=== PATIENT | female | born 1990 | race Caucasian/White ===

== ENCOUNTER → 2016-10-31 16:23 | Observation (INO) ==
[2016-10-31 13:35] LABS: Bilirubin,Urine Negative (Negative); Blood,Urine Trace (Negative); Clarity,Urine Cloudy (Clear); Color,Urine Yellow (Yellow); Glucose,Urine (UA) Normal (Normal); Ketones,Urine Trace mg/dL (Negative); Leukocyte Esterase,Urine Negative (Negative); Nitrite,Urine Negative (Negative); PH,Urine 5.5 pH Units (5.0-8.0); Protein,Urine Trace mg/dL (Neg-Trace); Specific Gravity,Urine 1.029 (1.010-1.025); Urobilinogen,Urine Normal (Normal)
[2016-10-31 13:37] LABS: Bacteria,Urine None Seen per hpf (None-Few); Squamous Epithelial Cell,Urine Many per lpf (None-Few); WBC,Urine 0-3 per hpf (0-3)
[2016-10-31 13:45] LABS: Calcium Oxalate Crystals,Urine Present
[2016-10-31 13:49] VITALS: BP 110/75
--- NOTE | 2016-10-31 16:15 | OB/GYN Progress Note ---
Date of Encounter: 10/31/16 Time of Encounter: 16:12 - Assessment and Plan (1) Pelvic pain affecting Current Visit: Yes Status: Acute Pt with occasional contractions but no cervical change of two exams by RN. UA negative, but with presenting symptoms will give rx for Keflex. Pt states is having a little more cramping since vaginal exams. Pt declines further vaginal exam. Discharged to home with labor and when to return precautions. (2) NST (non-stress test) reactive Current Visit: Yes Status: Acute Baseline 125 Subjective - Subjective Interval history: Pt complains of lower abdominal pain and pressure today. Pt states she has had increasing pain and pressure since yesterday and it comes and goes. Thinks they are contractions. Reports good movement, denies vaginal bleeding or leaking of fluid. Pt also complains of increased frequency and discomfort with urination, also feeling like she is not emptying her bladder completely over the last couple days. Antepartum ROS: new complaints, movement normal, contractions, no loss of fluid, no vaginal bleeding Objective - Vital Signs Vital Signs: Vital Signs Temp Resp BP 10/31/16 13:39 97.2 F L 14 110/75 Intake and Output 10/31/16 10/31/16 10/31/16 07:59 15:59 23:59 Other: Weight 96.5 kg Patient Weight 10/31/16 23:59 Weight 96.5 kg - Exam FHR: auscultation normal FHR comments: Reactive NST Auscultation: bilateral: normal Abdomen: Present: normal appearance, soft, gravid Uterus: Present: normal Cervical dilation: fingertip/long/high - Labs Labs: Abnormal lab results Urine Clarity Cloudy (Clear) A 10/31/16 13:24 Ur Specific [place] 1.029 (1.010-1.025) H 10/31/16 13:24 Urine Ketones Trace mg/dL (Negative) H 10/31/16 13:24 Urine Blood Trace (Negative) H 10/31/16 13:24 Ur Squamous Epith Cells Many per lpf (None-Few) H 10/31/16 13:24
== END | disposition home or self-care (01) ==
LOC: 1NENULAB
PROVIDERS: ADMIT Obstetrics & Gynecology; ATTEND Obstetrics & Gynecology

== ENCOUNTER 2016-12-05 05:30 | Inpatient (IN) ==
[2016-12-05] MEDS ORDERED: *HR* Nalbuphine 20 MG/ML AMPUL IVP PRN (06:13)
[2016-12-05] MEDS ORDERED: Ringers Solution, Lactated 1,000 ML IVC SCH (06:15)
--- NOTE | 2016-12-05 06:26 | OB/GYN History & Physical ---
Date of Encounter: 12/05/16 Time of Encounter: 06:16 Assessment and Plan (1) 39 weeks gestation of Current visit: Yes Status: Acute The patient has an appropriate care. The patient has had asthma in past, and requires albuterol 3-4/ week. (2) Elective induction of labor planned Current visit: Yes Status: Acute By mouth Cytotec, anticipate vaginal delivery (3) Hemorrhoids Current visit: Yes Status: Acute Pt states pain controlled with topical treatment Qualifiers: Hemorrhoid type: perianal venous thrombosis Qualified Code(s): K64.5 - Perianal venous thrombosis History of Present Illness HPI: Ms. Koehler is a 26 year old female at 39 weeks and 6 days with a PMHX of asthma and anxiety who presents for induction of labor. She had care at [facility] with Dr. Howard. Her has been complicated wit worsening of asthma with an increase of albuterol use from 1-2 times/week to 3-4 /week, but feels asthma is "controlled" and denies any nightime awakenings or antepartum exacerbations requiring hospitalization. Pt additionally endorsed a recent episode of hemorrhoids last week, which was treated with topical (Anusol ) treatment only. Pain has subsided since initial onset. She reports an active fetus. Denies vaginal bleeding, fluid loss, or shortness of breath. labs are the following: Blood type: O-/ Rubella Immune/ RPR NEG/ HebB NonReactive/HIV NonReactive/Varicella IgG +/ GBS NEG. Pt received [place] on as an outpatient. She has signed her informed consent for induction. Past Med Surg Social Fam HX - Past Medical History Source: patient Medical history: asthma, other Psychiatric history: anxiety, depression - Past Surgical History Surgical History: no surgical history - Social History Smoking Status: Current every day smoker Smokeless Tobacco Status: No Alcohol use: none Drug use: none - Family History Mother Living Status: Still Living Hx Family Respiratory Disorders: Yes (asthma) Obstetrical History - Pregnancies : 2 Para: 1 Term: 0 : 0 Ab's: 0 Livin - History/Complications History/Complications: 1st : 2008 Vaginal Delivery, full term Male, [id number] Medications and Allergies Vitamins 1 tab PO DAILY 10/31/16 [History] Albuterol Inhaler 1 puff AER PRN PRN 07/11/17 [History] Allergies No Known Allergies Allergy (Verified 12/05/16 06:29) Review of System OB - Constitutional Constitutional ROS IM: headache(s), lethargy, other (anxiety) - Respiratory Respiratory: as per HPI, no dyspnea, no wheezing, no pain on inspiration - Gastrointestinal Gastrointestinal: vomiting, no abdominal pain, no constipation, no diarrhea, no nausea - Genitourinary Genitourinary: urinary urgency, no abnormal vaginal bleeding, no dysuria, no pelvic pain, no vaginal discharge - Muscloskeletal Musculoskeletal: back pain Exam - Vital Signs Vital signs: T:98.4 BP: 114/78 HR: 81 - Constitutional Constitutional: well developed, well nourished, no acute distress - HEENT HEENT: EOMI, PERRL, Normocephaly - Neck Neck exam: supple - Lungs Respiratory exam: CTAB (No wheezing. No respiratory destress. No chest wall tendrness. ) - Cardiovascular Cardiovascular exam: RRR - Abdomen Abdomen: Present: bowel sounds normal, gravid - Comments Comments: FHT: Baseline: 135 Moderate Variability Contractions: Irregular Results Result Diagrams: 12/05/16 06:34 All other labs normal. - Attending Attestation I agree with H&P as written for elective induction of labor. Jerome Stephenson CNM
[2016-12-05] MEDS ORDERED: Ringers Solution, Lactated 1,000 ML ONE (06:40)
[2016-12-05 06:45] LABS: Basophils % 0.4 %; Eosinophils # 0.1 K/mcL (0.0-0.6); Eosinophils % 0.7 %; Hematocrit 33.6 % (35.3-44.9); Hemoglobin 11.1 g/dL (11.5-15.4); Immature Granulocytes % 1.1 % (0-4); Lymphocytes # 1.8 K/mcL (0.6-4.6); Lymphocytes % 19.7 %; Mean Corpuscular Hemoglobin 30.9 pg (28.0-33.3); Mean Corpuscular Volume 93.6 fL (83.0-100.0); Mean Platelet Volume 10.7 fL (9.4-12.4); Monocytes # 0.6 K/mcL (0.0-1.3); Monocytes % 6.4 %; Neutrophils # 6.5 K/mcL (1.6-8.9); Platelet Count 196 K/mcL (140-400); Red Blood Count 3.59 M/mcL (3.82-4.97); Red Cell Distribution Width 14.5 % (11.5-14.5); Segmented Neutrophils % 71.7 %
[2016-12-05] MEDS: miSOPROStol 100 MCG TABLET PO SCH ×2 (07:34→11:33)
--- NOTE | 2016-12-05 09:35 | Anesthesia Evaluation PreOp ---
Date of Encounter: 12/05/16 Time of Encounter: 09:33 - Past History Planned Operation: juan carlos Cardiac History: Arrhythmia (irregular hx, regular today) Pulmonary History: Smoker (1/2 ppd), Pack/yr (10), Asthma, Snore [employer] History: Denies Any Significant HX Other Medical History: GERD Anesthesia History: No Prior Anesthetic Complications, Past Anesthesia (juan carlos, no prob) : Yes Test: Positive Alcohol Use: none Drug use: none Medications and Allergies Vitamins 1 tab PO DAILY 10/31/16 [History] Albuterol Inhaler 1 puff AER PRN PRN 12/05/16 [History] Allergies No Known Allergies Allergy (Verified 12/05/16 06:29) - Meds/Allergy Pre-op Review Medications Reviewed: Yes Allergies Reviewed: Yes Beta Blockers on Current Med List: No Anesthesia Results - Labs 12/05/16 06:34 Anesthesia Exam 114/78 81 16 fht 131 Height: 5'3" Weight: 99 kg NPO (# of Hours): 5 Pain Scale: 2 Pain Scale Used: Numeric (1 - 10) - HEENT Pupil (Motor): Pupils equal Mallampati: II Teeth: Normal Oral Opening: Greater than 3 - GR[employer] LOC: Oriented [employer] Motor: Normal RUE, Normal LUE, Normal RLE, Normal LLE, Normal Face [employer] Sensory: Normal: RUE, LUE, RLE, LLE, Face - Cardiac Rhythm: Regular Murmur: None - Pulmonary Breath Sounds: bilateral Clear Respiratory Effort: Symmetrical Anesthesia Assess/Plan ASA Score: 2 Modified Ashwini Scale for Level of Consciousness: Cooperative, oriented, and tranquil Anesthetic Plan: MAC Autologous Blood: No Monitoring Plan: Standard Monitors Recovery Plan: Other (risks discussed, questions answered, consented)
--- NOTE | 2016-12-05 11:31 | OB Labor Progress Note ---
Date of Encounter: 12/05/16 Time of Encounter: 11:27 Labor Progress Note - Subjective Subjective: Patient resting comfortably in bed - Vital Signs Vital Signs: VSS - Cervix Cervix: 3/70/-2 posterior - Heart Tones Heart Tones: 140's with moderate variability and 15x15 accels - [place]: Contractions every 5-8 minutes; mild to palpation. Uterus palpates soft between contractions - Plan Plan: Continue routine labor management Give second dose of cytotec per protocol Patient may have epidural and/or iv pain medication upon request for pain GBS negative Anticipate vaginal delivery Consider AROM and/or pitocin for augmentation after next exam POC per consult with Dr Howard.
[2016-12-05] MEDS ORDERED: *HR* FentaNYL (PF) 100 MCG/2 ML VIAL EP ONE (15:32)
[2016-12-05] MEDS ORDERED: *HR* Ropivacaine/PF 0.2% 10 ML AMPUL EP ONE (15:32)
[2016-12-05] MEDS ORDERED: *HR* FentaNYL (PF) 100 MCG/2 ML VIAL ONE (15:40)
[2016-12-05] MEDS ORDERED: *HR* Ropivacaine/PF 0.2% 10 ML AMPUL ONE (15:40)
[2016-12-05] MEDS ORDERED: Epidural Premix (fent/bupiv) 110 ML EP ONE (15:40)
[2016-12-05] MEDS ORDERED: Epidural Premix (fent/bupiv) 110 ML EP SCH (15:45)
--- NOTE | 2016-12-05 16:12 | Anesthesia Procedures ---
Date of Encounter: 12/05/16 Time of Encounter: 16:10 Procedures: Anesthesia - Epidural/Spinal Patient examined: Yes OB Eval: Gestational age: 39.6 OB Eval: : 2 OB Eval: Hx Para: 1 OB Eval: Dilated at (cm): 4 OB Eval: Contractions: Non-stressed pattern Consent Obtained: Yes Supplemental Oxygen: None/Room Air Site Prep: Aseptic Technique, Sterile prep and drape, 0.5% Chlorhexidine/Alcohol Patient position: upright Local Anesthetic: Lidocaine 1% Amount of Local Anesthetic used: 4 Touhy Needle Gauge: 18 Touhy Needle Depth (cm): 8 Catheter Depth at Skin (cm): 15 Test Dose (1.5% Lido + Epi): Volume given (mls): 3 Test Dose Result: Negative Loading Dose: Fentanyl (mcg): 100 Loading Dose: Other: ropivicaine 0.2% 10 cc Loading Dose Administered: Thru Touhy Needle Infusion Med: 0.125% Bupivacaine w/ 2 mcg/ml Fentanyl Infusion Rate (mls/hr): 15 (pcea 5 cc q 30") Catheter Secured in Place: Tegaderm Interspace Used: L2-L3 Loss of Resistance (JAYDEN): Yes Blood: No CSF: No Paresthesia: No Procedure: aseptic throughout VSS, tolerated well Vitals + FHT's: 130/80 98 fht 131
[2016-12-05] MEDS ORDERED: Acetaminophen 325 MG TABLET PO PRN ×2 (16:39→21:33)
[2016-12-05] MEDS ORDERED: Oxytocin 20 units/ LR 1000 mL 20 UNIT/1,000 ML BAG IVC SCH ×2 (16:45→21:33)
[2016-12-05] MEDS ORDERED: Lidocaine 1% 20 ML MDV ONE (20:31)
--- NOTE | 2016-12-05 21:17 | OB/GYN Procedure Note ---
Delivery - Delivery Date: 12/05/16 Provider: Slick Howard Intrapartum events: none Delivery induction: oxytocin, misoprostol Delivery monitor: external FHT, external uterine Anesthesia: local, epidural Estimated Blood Loss: 150 - Infant (s) A Infant Delivery Date: 12/05/16 Delivery Time: 20:22 Presentation: vertex Position: [place] Gender: Female Viability: Viable Weight Gram: 3.605 kg at 1 minute: 8 at 5 mins: 9 Shoulder Dystocia: not encountered - Repair Episiotomy: none Laceration Description: Periurethral, Labial - Complications Delivery complications: none - Disposition Mom disposition: stable in LDR [place] disposition: stable in LDR - Comments Comments: Pt s/p of liveborn female infant. Left periurethral tear repaired with 3- 0 Vicryl under epidural and local anesthesia. Spontaneous deliver of normal placenta with 3-0 Vicryl.
[2016-12-05] MEDS ORDERED: Rho Immune Globulin 1,500 UNIT SYRINGE IM PRN (21:33)
[2016-12-05] MEDS ORDERED: Measles/Mumps/Rubella Vacc 0.5 ML VIAL SQ PRN (21:33)
[2016-12-05] MEDS: Famotidine 20 MG TABLET PO SCH (22:15)
[2016-12-05] MEDS ORDERED: Benzocaine/Menthol 56 GM AEROSOL SPRAY TP PRN (23:16)
[2016-12-05] MEDS: *HR* HYDROcodone/Acet 5/325 mg TABLET PO PRN (23:56)
[2016-12-06 06:20] LABS: Basophils % 0.2 %; Eosinophils # 0.1 K/mcL (0.0-0.6); Eosinophils % 0.6 %; Hematocrit 26.2 % (35.3-44.9); Immature Granulocytes % 1.1 % (0-4); Lymphocytes # 1.8 K/mcL (0.6-4.6); Lymphocytes % 14.8 %; Mean Corpuscular HGB Conc 32.8 g/dL (31.6-35.5); Mean Corpuscular Hemoglobin 31.2 pg (28.0-33.3); Mean Corpuscular Volume 94.9 fL (83.0-100.0); Mean Platelet Volume 10.2 fL (9.4-12.4); Monocytes # 0.6 K/mcL (0.0-1.3); Monocytes % 5.2 %; Neutrophils # 9.5 K/mcL (1.6-8.9); Platelet Count 150 K/mcL (140-400); Red Blood Count 2.76 M/mcL (3.82-4.97); Red Cell Distribution Width 14.6 % (11.5-14.5); Segmented Neutrophils % 78.1 %
[2016-12-06 06:21] LABS: Hemoglobin 8.6 g/dL (11.5-15.4)
[2016-12-06] MEDS: Ibuprofen 600 MG TABLET PO PRN ×2 (06:21→17:31)
[2016-12-06] MEDS: Famotidine 20 MG TABLET PO SCH (07:50)
--- NOTE | 2016-12-06 07:55 | Discharge Summary ---
Date of Encounter: 12/06/16 Time of Encounter: 07:51 - Discharge Diagnosis (1) Vaginal delivery Priority: Primary Status: Acute (2) Mother currently breast-feeding Priority: Secondary Status: Acute (3) anemia Priority: Secondary Status: Acute - Discharge Medications Prescriptions: HYDROcodone/Acet 5/325 mg [[place] 5-325 mg] 1 tab PO Q6HR PRN #10 tablet PRN Reason: Pain Ibuprofen [Motrin] 600 mg PO Q6HR PRN #60 tablet PRN Reason: Cramping Albuterol Sulfate [Albuterol Inhaler] 1 puff IH Q4H PRN #1 inhaler PRN Reason: Wheezing Docusate [Colace] 100 mg PO BID #60 capsule Iron Polysaccharide Complex [Ferric X-150] 150 mg PO DAILY #30 capsule Home Medications: Vitamins 1 tab PO DAILY 10/31/16 [History] Albuterol Sulfate [Albuterol Inhaler] 1 puff IH Q4H PRN #1 inhaler 12/06/16 [Rx] Benzocaine/Menthol [place] [Dermoplast [place]] 1 appl TP QID PRN #0 aerosol [Rx] Breast Pump [BREAST PUMP] 1 each .ROUTE AD #1 each 12/06/16 [Rx] Docusate [Colace] 100 mg PO BID #60 capsule 12/06/16 [Rx] HYDROcodone/Acet 5/325 mg [[place] 5-325 mg] 1 tab PO Q6HR PRN #10 tablet [Rx] Ibuprofen [Motrin] 600 mg PO Q6HR PRN #60 tablet 12/06/16 [Rx] Iron Polysaccharide Complex [Ferric X-150] 150 mg PO DAILY #30 capsule 12/06/16 [Rx] Allergies/Adverse Reactions: Allergies No Known Allergies Allergy (Verified 12/05/16 06:29) Data Procedures and tests throughout hospitalization: Laboratory Tests 12/05/16 12/05/16 12/06/16 06:34 20:55 06:06 WBC 9.1 12.2 H RBC 3.59 L 2.76 L Hgb 11.1 L 8.6 L D Hct 33.6 L 26.2 L MCV 93.6 94.9 MCH 30.9 31.2 MCHC 33.0 32.8 RDW 14.5 14.6 H Plt Count 196 150 MPV 10.7 10.2 Immature Gran % 1.1 1.1 Seg Neutrophils % 71.7 78.1 Lymphocytes % 19.7 14.8 Monocytes % 6.4 5.2 Eosinophils % 0.7 0.6 Basophils % 0.4 0.2 Neutrophils # 6.5 9.5 H Lymphocytes # 1.8 1.8 Monocytes # 0.6 0.6 Eosinophils # 0.1 0.1 Basophils # 0.0 0.0 Baby's Blood Type O RH POSITIVE Mother's Blood Type O RH NEGATIVE Rhogam Indicated YES Labs on day of discharge: Labs from last 24 hours 12/06/16 12/05/16 06:06 20:55 WBC 12.2 H RBC 2.76 L Hgb 8.6 L D Hct 26.2 L MCV 94.9 MCH 31.2 MCHC 32.8 RDW 14.6 H Plt Count 150 MPV 10.2 Immature Gran % 1.1 Seg Neutrophils % 78.1 Lymphocytes % 14.8 Monocytes % 5.2 Eosinophils % 0.6 Basophils % 0.2 Neutrophils # 9.5 H Lymphocytes # 1.8 Monocytes # 0.6 Eosinophils # 0.1 Basophils # 0.0 Screen Pending Baby's Blood Type O RH POSITIVE Mother's Blood Type O RH NEGATIVE Rhogam Indicated YES Rhogam Req for Mother Pending Date of admission: 12/05/16 06:08 Primary care physician: NUNO TATE Consults: 12/05/16 21:33 Consult to Brake Repairer [CONS] Routine Comment: Vaginal delivery, consult needed Discharging clinician: Rosalie Grayson Anticipated date of discharge: 12/06/16 - Patient Status Disposition: Home, Self-Care Condition: Good Functional capacity at discharge: independent ambulation Overall status at discharge: patient is progressing back to baseline - Discharge Instructions Follow Up With: NO,PCP [Primary Care Provider] - Slick Howard MD [Partnered Physician] - - Diet and Activity Activity: increase activity as tolerated Diet: regular diet Hospital Course Reason for admission: induction of labor Delivery: Episiotomy: none Laceration: other (periurethral/labial) Other procedures: none complications: none Discharge diagnosis: IUP at term delivered baby: female Hospital course: - Delivery Date: 12/05/16 Provider: Slick Howard Intrapartum events: none Delivery induction: oxytocin, misoprostol Delivery monitor: external FHT, external uterine Anesthesia: local, epidural Estimated Blood Loss: 150 - (s) Infant A Delivery Date: 12/05/16 Delivery Time: 20:22 Presentation: vertex Position: [place] Gender: Female Viability: Viable Weight Gram: 3.605 kg at 1 minute: 8 at 5 mins: 9 Shoulder Dystocia: not encountered - Repair Episiotomy: none Laceration Description: Periurethral, Labial - Complications Delivery complications: none - Disposition Mom disposition: home PPD#1 disposition: home with mother, Time Attestation: Total time spent providing and/or coordinating discharge services: Time Spent: Less than 30 minutes Exam - Constitutional Vitals: Temp Pulse Resp BP Pulse Ox 98.7 F 78 14 110/74 97 12/06/16 04:15 12/06/16 04:15 12/06/16 04:15 12/06/16 04:15 12/06/16 04:15 General appearance IM: A&O X 3 - Respiratory Respiratory exam: Present: CTAB - Cardiovascular Cardiovascular exam IM: Present: RRR, +S1, +S2 - GI/Abdominal GI/Abdominal exam IM: soft - Rectal Rectal exam: deferred - External exam: normal external exam Uterine Tone: Firm Uterus Position: 2 Fingers Below Umbilicus - Extremities Exam Extremities exam IM: Present: pedal edema (mild edema bilaterally) - Neurological Exam Neurological exam: normal gait, oriented X3 - Psychiatric Additional comments: reports good mood
[2016-12-06 07:59] VITALS: BP 120/80
[2016-12-06] MEDS ORDERED: Prenatal Vit/FA 1 EACH TABLET PO SCH (09:00)
[2016-12-06] MEDS: *HR* HYDROcodone/Acet 5/325 mg TABLET PO PRN (12:15)
== END 2016-12-06 21:20 | disposition home or self-care (01) | DRG 560 ==
LOC: 1NENULAB 06:08 → 1NENUOBS 23:16
PROVIDERS: ADMIT Obstetrics & Gynecology; ATTEND Obstetrics & Gynecology